=== PATIENT | female | born 1970 | race Caucasian/White ===

== ENCOUNTER 2018-03-30 06:32 | Day surgery (SDC) | payer BC ==
[2018-03-30] MEDS ORDERED: LIDOCAINE 2% (SDV) 5 ML INJ (07:00)
[2018-03-30] MEDS: INSULIN REGULAR, HUMAN 100 UNIT/1 ML 3ML VIAL IV (08:22)
[2018-03-30] MEDS ORDERED: PROPOFOL 20 ML (09:00)
[2018-03-30] MEDS ORDERED: ROCURONIUM 50 MG INJ (09:32)
[2018-03-30] MEDS ORDERED: CEFAZOLIN 1 GM INJ (09:32)
[2018-03-30] MEDS ORDERED: SUGAMMADEX SODIUM 200 MG/2 ML VIAL IV (09:32)
[2018-03-30] MEDS: BUPIVACAINE 0.25%/EPI (SDV) 30 ML INJ (09:32)
[2018-03-30] MEDS ORDERED: EPHEDrine SULFATE 50 MG/5 ML SYG IV (10:00)
[2018-03-30] MEDS ORDERED: METOCLOPRAMIDE 10 MG INJ IV (10:00)
[2018-03-30] MEDS ORDERED: MEPERIDINE 25 MG INJ IV (10:00)
[2018-03-30] MEDS ORDERED: DIPHENHYDRAMINE 50 MG INJ IV (10:00)
[2018-03-30] MEDS ORDERED: HYDROmorphONE 1 MG/5 ML IV SYRINGE IV ×3 (10:00)
[2018-03-30] MEDS ORDERED: ALBUTEROL 0.083% (NEB) 2.5 MG/3 ML AMP HHN (10:00)
[2018-03-30] MEDS ORDERED: FENTAnyl 50 MCG/ML VIAL IV ×3 (10:00)
[2018-03-30] MEDS ORDERED: OXYCODONE/ACETAMINOPHEN (5/325) TAB PO ×3 (10:00)
[2018-03-30] MEDS ORDERED: hydrALAzine 20 MG INJ IV (10:00)
[2018-03-30] MEDS ORDERED: LABETALOL HCL 20MG INJ IV (10:00)
[2018-03-30] MEDS ORDERED: ONDANSETRON 4 MG INJ IV ×2 (10:00)
[2018-03-30] MEDS ORDERED: morphine 2 MG INJ IV (10:00)
[2018-03-30] MEDS: OXYCODONE/ACETAMINOPHEN (5/325) TAB PO (11:04)
== END 2018-03-30 11:15 | disposition home or self-care (01) ==
LOC: SDS 06:32
DX: K64.2 Third degree hemorrhoids (principal); E11.9 Type 2 diabetes mellitus without complications; I10 Essential (primary) hypertension; E66.01 Morbid (severe) obesity due to excess calories; Z68.43 Body mass index [BMI] 50.0-59.9, adult; F17.200 Nicotine dependence, unspecified, uncomplicated
CPT/HCPCS: 46260; 82962; 88304